=== PATIENT | male | born 1985 | race Two or more races ===

== ENCOUNTER 2019-10-02 15:58 | Inpatient (IN) ==
--- NOTE | 2019-10-02 16:43 | XRay Report ---
RIGHT FOOT 3 VIEWS CLINICAL HISTORY: Right foot injury. FINDINGS: 3 views of the right foot are obtained. No prior studies are available for comparison at th e time of dictation. The skeletal structures are well mineralized. There is a distracted fracture thr ough the base of the first metatarsal, with superior dislocation of the first metatarsal at the first tarsometatarsal articulation. There is also mild lateral subluxation of the base of the first metata rsal. There may also be fracture at the base of the second metatarsal which is also superiorly sublux ed. There is lateral displacement of the second through fifth metatarsals indicating Lisfranc injury. Overlying soft tissue edema is noted. IMPRESSION: 1. Fracture/dislocation at the first tarsometatarsal articulation as above. 2. There may also be fracture of the base of the second metatarsal which is also superiorly subluxed. 3. There is lateral displacement of the second through fifth metatarsals indicating Lisfranc type inj ury. Electronically signed by: Juan Lino M.D. 10/02/2019 4:41 PM
[2019-10-02] MEDS ORDERED: ONDANSETRON INJ 2 MG/ML 2 ML VIAL IV STA (16:50)
[2019-10-02] MEDS ORDERED: MoRPHine SULFATE 10 MG/ML CARP/VIAL IV STA (16:50)
[2019-10-02 16:59] LABS: Basophils # (auto) 0.02 K/uL (0-0.2); Basophils % (auto) 0.2 %; Eosinophils # (auto) 0.08 K/uL (0-0.5); Eosinophils % (auto) 0.7 %; Hematocrit (blood only) 44.8 % (42-52); Hemoglobin 15.2 g/dL (14.0-18.0); Immature Granulocytes # (auto) 0.02 K/uL (0.00-0.02); Immature Granulocytes % (auto) 0.2 %; Lymphocytes % (auto) 14.6 %; Mean Corpuscular Hemoglobin 30.4 pg (25-34); Mean Corpuscular Hgb Conc 33.9 g/dL (32-36); Mean Corpuscular Volume 89.6 fL (80-100); Mean Platelet Volume 10.4 fL (7.4-10.4); Monocytes # (auto) 0.72 K/uL (0.11-0.59); Monocytes % (auto) 6.6 %; Neutrophils # (auto) 8.52 K/uL (1.4-6.5); Neutrophils % (auto) 77.7 %; Platelet Count 190 K/uL (130-400); RDW Coefficient of Variation 13.2 % (11.5-14.5); RDW Standard Deviation 43.1 fL (36.4-46.3); White Blood Count 10.96 K/uL (4.8-10.8)
[2019-10-02 17:15] LABS: BUN Creatinine Ratio 18.5 (10-20); Blood Urea Nitrogen 15 mg/dl (7-18); Calcium 9.4 mg/dl (8.5-10.1); Carbon Dioxide 29 mmol/L (21-32); Chloride 108 mmol/L (98-107); Est GFR (African American) 133.7; Est GFR (Non-African American) 115.4; Glucose 102 mg/dl (70-99); Potassium 3.9 mmol/L (3.5-5.1); Sodium 140 mmol/L (136-145)
--- NOTE | 2019-10-02 18:28 | CT Scan Report ---
CT SCAN OF THE RIGHT FOOT WITHOUT IV CONTRAST CLINICAL HISTORY: Right foot fractures. COMPARISON STUDY: Radiographs of the right foot dated 10/02/2019. TECHNIQUE: CT scan of the right foot is performed from the ankle to the base of the foot. Images are reviewed in the axial, sagittal, and coronal planes. IV contrast was not administered for this examin ation. 3-D reformats are created and assessed. A dose lowering technique was utilized adhering to the principles of ALARA. CT DOSE: 160.91 mGy.cm FINDINGS: The skeletal structures are well mineralized. There is no fracture seen at the ankle joint. The ankle mortise is intact. There is a complex fracture/dislocation again seen in the midfoot. Ther e is a comminuted fracture through the base of the first metatarsal with large distracted fragments a nd dislocation at the first tarsometatarsal joint. There is superior subluxation of the first metatar justine with apex lateral angulation. There are also comminuted fracture through the base of the second a nd third metatarsals with intra-articular extension and numerous distracted fragments. There is super ior subluxation of the second metatarsal, as well as lateral displacement of the second through fifth metatarsals. This indicates a Lisfranc type fracture. There are tiny avulsion fractures identified a t the base of the fourth metatarsal, the dorsal surface at the base of the fifth metatarsal, and at t he base of the lateral cuneiform. There is soft tissue edema and hemorrhage identified around the fra cture sites. No subcutaneous gas is seen. The Achilles tendon is intact as visualized. IMPRESSION: Complex fracture/dislocation of the midfoot as detailed above. ACT 112: Negative or not required by law. Dictated: 10/02/2019 5:47 PM Transcribed: 10/02/2019 6:16 PM Ethel [id number] SALTY_Ana Maria Electronically signed by: Juan Lino M.D. 10/02/2019 6:27 PM
[2019-10-02] MEDS ORDERED: ONDANSETRON INJ 2 MG/ML 2 ML VIAL IV PRN (18:47)
[2019-10-02] MEDS ORDERED: SODIUM CHLORIDE 0.9% 1000ML 1,000 ML IV SCH (18:47)
[2019-10-02] MEDS: OXYCODONE/ACETAMINOPHEN 5mg/325mg TAB PO PRN ×2 (19:24→23:14)
[2019-10-02] MEDS ORDERED: Nursing to Pharmacy Communication ONE (20:07)
--- NOTE | 2019-10-02 20:17 | Emergency Department Note ---
History of Present Illness General Chief complaint: Foot Injury/Pain Stated complaint: POSSIBLY BROKEN FOOT,FELL OFF LADDER Time Seen by Provider: 10/02/19 16:09 Source: patient Mode of arrival: ambulatory Limitations: language barrier (Teacher Education Director used) History of Present Illness Maximum Pain Intensity: 7 This patient is a 34-year-old male who presents to the emergency department for evaluation of a right foot injury. History obtained with the aid of the interpreting service. The patient states that he was at work and was on a ladder when the ladder fell and he landed onto his right foot. He reports pain in the foot rated a 7/10. He has not been able to walk on the foot. He has not taken anything for pain. He denies numbness or weakness. He denies any other injuries and states he did not strike his head. Home Medications Home Medications Medication Instructions Recorded Confirmed Type No Known Home Medications 10/02/19 10/02/19 History Allergies Allergy/AdvReac Type Severity Reaction Status Date / Time No Known Allergies Allergy Verified 10/02/19 17:09 Past Med/Surg History Medical History No significant past medical history Social History Preferred Language: Lithuanian Communication Ability: Effective Communication Tools: IPad Teacher Education Director Required: Yes Beliefs That Will Affect Care: None Current Living Situation: Spouse Other Information That Helps Us Care for You: No Feels Safe at Home: Yes Safety Concerns: Feels Safe At This Time Smoking Status: Never smoker Do You Dip or Chew Tobacco: No ; Second Hand Exposure: No ; Tobacco Cessation Education Requested by Patient: No Hx Alcohol Use: No Hx Substance Use: No Review of Systems A total of 10 systems reviewed and were otherwise negative Physical Exam Vital Signs Vital Signs - 24 hr 10/02/19 16:02 Temperature 37.4 C Temperature Source Oral Pulse Rate 88 Respiratory Rate 18 Respiratory Effort / Characteristics Non-Labored Respiratory Depth Normal Blood Pressure 160/92 H Blood Pressure Mean 114 Blood Pressure Position Sitting Pulse Oximetry 100 Oxygen Delivery Method Room Air Sepsis Recent Fever Within 48 Hours No Sepsis New/Unexplained Change in Mental Status No Sepsis Action Taken by Nursing No Action Required VITALS: Vitals are noted on the nurse's note and reviewed by myself. Vital signs stable. GENERAL: This is a 34-year-old male, in no acute distress but appears to be in pain, well-developed well-nourished. SKIN: No laceration or abrasion. EARS: External auditory canals clear, tympanic membranes pearly curry without erythema or effusion bilaterally. EYES: Pupils equal round and reactive to light and accommodation. Extraocular movements intact. MOUTH: Mucous membranes moist. NECK: Supple without nuchal rigidity. No lymphadenopathy. HEART: Regular rate and rhythm without murmurs gallops or rubs. LUNGS: Clear to auscultation bilaterally without wheezes, rales or rhonchi. ABDOMEN: Soft, nontender. MUSCULOSKELETAL: Obvious deformity of the dorsum of the right midfoot with tenderness to palpation over the midfoot. Patient able to move all toes. Full range of motion of the ankle. No tenderness of the ankle or proximal tibia/fibula. Capillary refill within 2 seconds. NEURO: Patient was alert and oriented to person place and time. Sensation intact to the toes of the right foot. Dorsalis pedis pulse 2+. Course Consultations Consultation #1: Dr. Orellana - orthopedics Administered Medications Sodium Chloride (Nss 1000ml) 1,000 mls @ 70 mls/hr IV .[id number] ESE Stop: 10/02/19 23:59 Last Admin: 10/02/19 19:18 Dose: 70 mls/hr Documented by: [id number] Oxycodone/Acetaminophen (Percocet 5mg/325mg) 1 - 2 tab PO Q4H PRN PRN Reason: Pain Stop: 10/16/19 18:46 Last Admin: 10/02/19 19:24 Dose: 2 tab Documented by: [id number] Discontinued Medications Morphine Sulfate (Morphine Sulfate) 6 mg IV NOW STA Stop: 10/02/19 16:51 Last Admin: 10/02/19 16:59 Dose: 6 mg Documented by: [id number] Ondansetron HCl (Zofran) 4 mg IV NOW STA Stop: 10/02/19 16:51 Last Admin: 10/02/19 16:59 Dose: 4 mg Documented by: [id number] Medical Decision Making Differential Diagnosis Differential diagnosis includes fracture, contusion, dislocation, among others. Home Medications Current Medication List: was personally reviewed by me Laboratory Data Attestation: I reviewed the patient's lab results. Result diagrams: 10/02/19 16:50 10/02/19 16:50 Lab Results 10/02/19 10/02/19 Range/Units 16:50 16:50 WBC 10.96 H (4.8-10.8) K/uL RBC 5.00 (4.7-6.1) M/uL Hgb 15.2 (14.0-18.0) g/dL Hct 44.8 (42-52) % MCV 89.6 (80-100) fL MCH 30.4 (25-34) pg MCHC 33.9 (32-36) g/dL RDW Std Deviation 43.1 (36.4-46.3) fL RDW Coeff of Win 13.2 (11.5-14.5) % Plt Count 190 (130-400) K/uL MPV 10.4 (7.4-10.4) fL Immature Gran % (Auto) 0.2 % Neut % (Auto) 77.7 % Lymph % (Auto) 14.6 % [place] % (Auto) 6.6 % Eos % (Auto) 0.7 % Baso % (Auto) 0.2 % Immature Gran # (Auto) 0.02 (0.00-0.02) K/uL Neut # (Auto) 8.52 H (1.4-6.5) K/uL Lymph # (Auto) 1.60 (1.2-3.4) K/uL [place] # (Auto) 0.72 H (0.11-0.59) K/uL Eos # (Auto) 0.08 (0-0.5) K/uL Baso # (Auto) 0.02 (0-0.2) K/uL Sodium 140 (136-145) mmol/L Potassium 3.9 (3.5-5.1) mmol/L Chloride 108 H (98-107) mmol/L Carbon Dioxide 29 (21-32) mmol/L Anion Gap 3.0 (3-11) BUN 15 (7-18) mg/dl Creatinine 0.82 (0.6-1.4) mg/dl Est Cr Clr Drug Dosing Not Reportable Est GFR ( Amer) 133.7 Est GFR (Non-Af Amer) 115.4 BUN/Creatinine Ratio 18.5 (10-20) Glucose 102 H (70-99) mg/dl Calcium 9.4 (8.5-10.1) mg/dl Imaging Data Attestation: I personally reviewed and interpreted this imaging study as follows: Radiologist's Impression: RIGHT FOOT 3 VIEWS CLINICAL HISTORY: Right foot injury. FINDINGS: 3 views of the right foot are obtained. No prior studies are available for comparison at the time of dictation. The skeletal structures are well mineralized. There is a distracted fracture through the base of the first metatarsal, with superior dislocation of the first metatarsal at the first tarsometatarsal articulation. There is also mild lateral subluxation of the base of the first metatarsal. There may also be fracture at the base of the second metatarsal which is also superiorly subluxed. There is lateral displacement of the second through fifth metatarsals indicating Lisfranc injury. Overlying soft tissue edema is noted. IMPRESSION: 1. Fracture/dislocation at the first tarsometatarsal articulation as above. 2. There may also be fracture of the base of the second metatarsal which is also superiorly subluxed. 3. There is lateral displacement of the second through fifth metatarsals indic ating Lisfranc type injury. CT SCAN OF THE RIGHT FOOT WITHOUT IV CONTRAST CLINICAL HISTORY: Right foot fractures. COMPARISON STUDY: Radiographs of the right foot dated 10/02/2019. TECHNIQUE: CT scan of the right foot is performed from the ankle to the base of the foot. Images are reviewed in the axial, sagittal, and coronal planes. IV contrast was not administered for this examination. 3-D reformats are created and assessed. A dose lowering technique was utilized adhering to the principles of ALARA. CT DOSE: 160.91 mGy.cm FINDINGS: The skeletal structures are well mineralized. There is no fracture seen at the ankle joint. The ankle mortise is intact. There is a complex fracture/dislocation again seen in the midfoot. There is a comminuted fracture through the base of the first metatarsal with large distracted fragments and dislocation at the first tarsometatarsal joint. There is superior subluxation of the first metatarsal with apex lateral angulation. There are also comminuted fracture through the base of the second and third metatarsals with intra- cular extension and numerous distracted fragments. There is superior subluxation of the second metatarsal, as well as lateral displacement of the second through fifth metatarsals. This indicates a Lisfranc type fracture. There are tiny avulsion fractures identified at the base of the fourth metatarsal, the dorsal surface at the base of the fifth metatarsal, and at the base of the lateral cuneiform. There is soft tissue edema and hemorrhage identified around the fracture sites. No subcutaneous gas is seen. The Achilles tendon is intact as visualized. IMPRESSION: Complex fracture/dislocation of the midfoot as detailed above. Blood Pressure Blood Pressure Findings: Normal blood pressure MDM Narrative This patient is a 34-year-old male who presents to the emergency department for evaluation of an injury to his right foot. X-ray was obtained and shows fracture dislocation of the right first metatarsal, possible fracture of the second metatarsal with superior subluxation, and lateral subluxation of the lateral metatarsals consistent with Lisfranc injury. The case was discussed with the on-call orthopedist, Dr. Orellana, who will admit the patient for operative management in the morning. Patient received 6 mg IV morphine for pain. A CT was obtained at the request of Dr. Orellana and the patient was placed in a posterior and stirrup splint. The foot was elevated and ice applied. The patient was agreeable with the plan of care. Impression & Plan Lisfranc dislocation, Fracture dislocation of foot, Closed fracture of first metatarsal bone Discharge Plan Visit Data *Final* Discharge Date/Time: 10/02/19 18:13 Chief Complaint: Foot Injury/Pain Stated Complaint: POSSIBLY BROKEN FOOT,FELL OFF LADDER ED Provider: Juan Christopher ED Midlevel Provider: Radha Leonardo Discharge Problem: Lisfranc dislocation, Fracture dislocation of foot, Closed fracture of first metatarsal bone Patient Disposition: Admitted As Inpatient Discharge Instructions Interventions: ED Discharge Assessment Last Done: 10/02/19 18:13 Discharge Problem: Lisfranc dislocation Qualifiers: Encounter type: initial encounter Laterality: right Qualified Code(s): S93.324A - Dislocation of tarsometatarsal joint of right foot, initial encounter Fracture dislocation of foot Qualifiers: Encounter type: initial encounter Fracture type: closed Laterality: right Qualified Code(s): S92.901A - Unspecified fracture of right foot, initial encounter for closed fracture Closed fracture of first metatarsal bone Qualifiers: Encounter type: initial encounter Fracture alignment: displaced Laterality: right Qualified Code(s): S92.311A - Displaced fracture of first metatarsal bone, right foot, initial encounter for closed fracture
[2019-10-02] MEDS: HYDROmorphone INJ 0.5 MG/0.5 ML SYR IV PRN (22:02)
[2019-10-02] MEDS: SODIUM CHLORIDE 0.9% 1000ML 1,000 ML IV SCH (23:26)
[2019-10-03] MEDS: OXYCODONE/ACETAMINOPHEN 5mg/325mg TAB PO PRN ×2 (02:59→07:14)
[2019-10-03] MEDS: SODIUM CHLORIDE 0.9% 1000ML 1,000 ML IV SCH ×3 (03:38→22:23)
[2019-10-03] MEDS: HYDROmorphone INJ 0.5 MG/0.5 ML SYR IV PRN (03:38)
[2019-10-03] MEDS ORDERED: PROPOFOL IV EMULSION 10 MG/ML 20 ML VIAL IV ONE ×2 (06:58→11:21)
[2019-10-03] MEDS ORDERED: ONDANSETRON INJ 2 MG/ML 2 ML VIAL ONE ×2 (06:58→11:21)
[2019-10-03] MEDS ORDERED: DEXAMETHASONE SOD INJ 4 MG/ML VIAL ONE (06:58)
[2019-10-03] MEDS ORDERED: LIDOCAINE HCL 2% 2 ML VIAL/AMP(20MG/ML) INFIL ONE (06:58)
[2019-10-03] MEDS ORDERED: MIDAZOLAM HCL 1 MG/ML 2ML VIAL ONE (06:59)
[2019-10-03] MEDS ORDERED: fentaNYL citrate 100 MCG/2 ML VIAL ONE ×2 (06:59→10:44)
--- NOTE | 2019-10-03 07:12 | History & Physical Report ---
Date of Service October 03, 2019 Assessment & Plan (1) Lisfranc dislocation: Patient has a Lisfranc fracture/dislocation. Treatment options discussed and surgical fixation was recommended. Risks, benefits, and alternatives to surgery were discussed with the patient and they would like to proceed. Will plan on ORIF right foot this morning with Dr. Orellana. He will be in to see the patient to further discuss procedure and obtain signed informed consent. Again, patient does have a language barrier and will need ipad concrete stone finisher available. All questions answered. Encounter type: initial encounter Laterality: right Qualified Code(s): S93.324A - Dislocation of tarsometatarsal joint of right foot, initial encounter History of Present Illness Chief Complaint: Left foot pain Primary Care Provider: NO PCP 34 year old arabic speaking male with no significant PMHx presented to ED with complaint of right foot injury. Patient was at work and slipped off of a ladder and fell approximately 8 feet. Immediate onset of left foot pain. X-rays and CT scan at [facility] demonstrated complex fracture/dislocation of the midfoot. Surgical fixation was recommended. Denies any other injuries. Patient denies headaches, sweats, fevers, chills, double vision, blurred vision, cough, sore throat, dysphagia, chest pain, sob, wheezing, n/v/d/c, numbness, tingling,urinary symptoms. ROS positive for right pain and stiffness. History limited and o btained through concrete stone finisher ipad Allergies Allergy/AdvReac Type Severity Reaction Status Date / Time No Known Allergies Allergy Verified 10/02/19 17:09 Home Medications Home Medications Medication Instructions Recorded Confirmed Type No Known Home Medications 10/02/19 10/02/19 History Past Med/Surg History Medical History No significant past medical history Social History Preferred Language: Irish Communication Ability: Effective Communication Tools: IPad, Facial Expression and Physical Gestures Communications Coordinator Required: Yes Beliefs That Will Affect Care: None Current Living Situation: Spouse Other Information That Helps Us Care for You: No Feels Safe at Home: Yes Safety Concerns: Feels Safe At This Time Smoking Status: Never smoker Do You Dip or Chew Tobacco: No ; Second Hand Exposure: No ; Tobacco Cessation Education Requested by Patient: No Hx Alcohol Use: No Hx Substance Use: No Review of Systems All systems reviewed & are unremarkable except as noted in HPI & below Physical Exam Constitutional: well developed and well nourished; no acute distress ENMT: external ear and nose normal, oropharynx normal Neck: normal visual inspection Respiratory: normal respiratory effort; no respiratory distress Cardiovascular: Rate/Rhythm: regular rate and regular rhythm Musculoskeletal: Right foot-splint c/d/i. Toes are mobile and cap refill <3s. No pain with palpation and gentle ROM of knee or hip. Distally sensation is intact. No calf tenderness. Skin: no rashes, warm and dry Neurologic: normal touch/pain/proprioception and moves all extremities Psychiatric: A+Ox3, euthymic affect Lymphatic: no lymphadenopathy Results & Data Vital Signs (Past 12 Hours) Vital Signs Temp Pulse Resp BP Pulse Ox 10/02/19 23:42 36.9 C 59 L 16 108/67 94 Laboratory Results Lab Results 10/02/19 10/02/19 Range/Units 16:50 16:50 WBC 10.96 H (4.8-10.8) K/uL RBC 5.00 (4.7-6.1) M/uL Hgb 15.2 (14.0-18.0) g/dL Hct 44.8 (42-52) % MCV 89.6 (80-100) fL MCH 30.4 (25-34) pg MCHC 33.9 (32-36) g/dL RDW Std Deviation 43.1 (36.4-46.3) fL RDW Coeff of Win 13.2 (11.5-14.5) % Plt Count 190 (130-400) K/uL MPV 10.4 (7.4-10.4) fL Immature Gran % (Auto) 0.2 % Neut % (Auto) 77.7 % Lymph % (Auto) 14.6 % [place] % (Auto) 6.6 % Eos % (Auto) 0.7 % Baso % (Auto) 0.2 % Immature Gran # (Auto) 0.02 (0.00-0.02) K/uL Neut # (Auto) 8.52 H (1.4-6.5) K/uL Lymph # (Auto) 1.60 (1.2-3.4) K/uL [place] # (Auto) 0.72 H (0.11-0.59) K/uL Eos # (Auto) 0.08 (0-0.5) K/uL Baso # (Auto) 0.02 (0-0.2) K/uL Sodium 140 (136-145) mmol/L Potassium 3.9 (3.5-5.1) mmol/L Chloride 108 H (98-107) mmol/L Carbon Dioxide 29 (21-32) mmol/L Anion Gap 3.0 (3-11) BUN 15 (7-18) mg/dl Creatinine 0.82 (0.6-1.4) mg/dl Est Cr Clr Drug Dosing Not Reportable Est GFR ( Amer) 133.7 Est GFR (Non-Af Amer) 115.4 BUN/Creatinine Ratio 18.5 (10-20) Glucose 102 H (70-99) mg/dl Calcium 9.4 (8.5-10.1) mg/dl Diagnostic Findings RIGHT FOOT 3 VIEWS CLINICAL HISTORY: Right foot injury. FINDINGS: 3 views of the right foot are obtained. No prior studies are available for comparison at the time of dictation. The skeletal structures are well mineralized. There is a distracted fracture through the base of the first metatarsal, with superior dislocation of the first metatarsal at the first tarsometatarsal articulation. There is also mild lateral subluxation of the base of the first metatarsal. There may also be fracture at the base of the second metatarsal which is also superiorly subluxed. There is lateral displacement of the second through fifth metatarsals indicating Lisfranc injury. Overlying soft tissue edema is noted. IMPRESSION: 1. Fracture/dislocation at the first tarsometatarsal articulation as above. 2. There may also be fracture of the base of the second metatarsal which is also superiorly subluxed. 3. There is lateral displacement of the second through fifth metatarsals indicating Lisfranc type injury. CT SCAN OF THE RIGHT FOOT WITHOUT IV CONTRAST CLINICAL HISTORY: Right foot fractures. COMPARISON STUDY: Radiographs of the right foot dated 10/02/2019. TECHNIQUE: CT scan of the right foot is performed from the ankle to the base of the foot. Images are reviewed in the axial, sagittal, and coronal planes. IV contrast was not administered for this examination. 3-D reformats are created and assessed. A dose lowering technique was utilized adhering to the principles of ALARA. CT DOSE: 160.91 mGy.cm FINDINGS: The skeletal structures are well mineralized. There is no fracture seen at the ankle joint. The ankle mortise is intact. There is a complex fracture/dislocation again seen in the midfoot. There is a comminuted fracture through the base of the first metatarsal with large distracted fragments and dislocation at the first tarsometatarsal joint. There is superior subluxation of the first metatarsal with apex lateral angulation. There are also comminuted fracture through the base of the second and third metatarsals with intra- articular extension and numerous distracted fragments. There is superior subluxation of the second metatarsal, as well as lateral displacement of the second through fifth metatarsals. This indicates a Lisfranc type fracture. There are tiny avulsion fractures identified at the base of the fourth metatarsal, the dorsal surface at the base of the fifth metatarsal, and at the base of the lateral cuneiform. There is soft tissue edema and hemorrhage identified around the fracture sites. No subcutaneous gas is seen. The Achilles tendon is intact as visualized. IMPRESSION: Complex fracture/dislocation of the midfoot as detailed above. Code Status & VTE Plan VTE Prophylaxis Plan VTE Prophylaxis will be ordered: Yes
[2019-10-03] MEDS ORDERED: ROPIVACAINE 0.5% 5 MG/ML 30 ML VIAL ONE (08:09)
--- NOTE | 2019-10-03 08:22 | Anesthesiology Consultation ---
Date of Service October 03, 2019 Assessment & Plan (1) Encounter for pre-operative examination: History Surgery Operation Date: 10/03/19 08:00 Proposed Procedures p Open Reduction Internal Fixation Right Distal Dislocated Foot Fracture(Right) - Bernabe Orellana DO Height/Weight Height: 5 ft 8 in Weight: 89.1 kg Allergies Allergy/AdvReac Type Severity Reaction Status Date / Time No Known Allergies Allergy Verified 10/02/19 17:09 Medications Home Medications Medication Instructions Recorded Confirmed Last Taken No Known Home Medications 10/02/19 10/02/19 Unknown Active Medications Generic Name Dose Route Start Last Admin Trade Name Freq PRN Reason Stop Dose Admin Hydromorphone HCl 0.2 mg 10/02/19 20:11 10/03/19 03:38 Dilaudid IV 10/16/19 20:10 0.2 mg Q4H PRN Administration Pain Sodium Chloride 1,000 mls @ 125 mls/hr 10/02/19 23:59 10/03/19 07:32 Nss 1000ml IV 11/01/19 23:58 0 mls/hr .Q8H ESE Infusion Oxycodone/Acetaminophen 1 - 2 tab 10/02/19 18:47 10/03/19 07:14 Percocet 5mg/325mg PO 10/16/19 18:46 2 tab Q4H PRN Administration Pain NPO Date Last Intake of Fluids: 10/02/19 Time Last Intake of Fluids: 17:00 Last Intake of Fluids Comment: sips with meds at 0715 Date Last Intake of Solids: 10/02/19 Time Last Intake of Solids: 17:00 Past Medical History Medical History No significant past medical history Social History Smoking Status: Never smoker Do You Dip or Chew Tobacco: No Hx Alcohol Use: No Hx Substance Use: No substance use type: does not use Physical Exam Vital Signs Last Vital Signs Temp 36.7 C 10/03/19 07:29 Pulse 62 10/03/19 07:29 Resp 16 10/03/19 07:29 BP 120/79 10/03/19 07:29 Pulse Ox 96 10/03/19 07:29 Testing Laboratory Results 10/02/19 16:50 10/02/19 16:50
[2019-10-03] MEDS ORDERED: ATROPINE SULFATE 0.1 MG/ML 10ML SYR IV PRN (09:13)
[2019-10-03] MEDS ORDERED: ONDANSETRON INJ 2 MG/ML 2 ML VIAL IV PRN ×2 (09:13→12:32)
[2019-10-03] MEDS ORDERED: HYDROmorphone INJ 1 MG/ML SYRINGE IV PRN (09:13)
[2019-10-03] MEDS ORDERED: ePHEDrine sulfate 50 MG/ML AMP IV PRN (09:13)
[2019-10-03] MEDS ORDERED: fentaNYL citrate 100 MCG/2 ML VIAL IV PRN (09:13)
[2019-10-03] MEDS ORDERED: CEFAZOLIN 2000MG 2,000 MG/15 ML SYR IV ONE (09:18)
--- NOTE | 2019-10-03 11:28 | History & Physical Bridge Note ---
Date of Service October 03, 2019 History & Physical Bridge Note I have examined the patient, reviewed the History & Physical and in the interval since the performance of the History & Physical I have noted the following changes of clinical significance: no changes noted
--- NOTE | 2019-10-03 11:31 | Fluoroscopy Report ---
FL foot RT 2V HISTORY: 34 years-old Male ORIF multiple acute right-sided foot fractures COMPARISON: Right foot radiographs and CT 10/02/2019 TECHNIQUE: 2 spot fluoroscopic images of the right foot were obtained utilizing 190.8 seconds fluoros copy time. FINDINGS: K wires traversing the first, second and third tarsometatarsal joints. A cannulated screw traverses t he Lisfranc articulation. A second cannulated screw is noted in the midfoot traversing the first, sec ond and third cuneiforms. A third screw is noted within the base of the first metatarsal. There is im proved alignment. Expected postsurgical soft tissue swelling and deep tissue air. Dorsal spurring of the talus. IMPRESSION: Fluoroscopic assistance as above. Please see operative report for further details. ACT 112: Negative or not required by law. The above report was generated using voice recognition software. It may contain grammatical, syntax o r spelling errors. Electronically signed by: Sergio Carbajal M.D. 10/03/2019 11:29 AM
--- NOTE | 2019-10-03 11:34 | Post Operative Brief Note ---
Immediate Post Op Note v1 Date of Surgery October 03, 2019 Pre & Post Diagnosis Operation Date: 10/03/19 08:00 Pre-Op Diagnosis: RIGHT FOOT CLOSED FRACTURE/DISLOCATION Lisfranc joint, closed dislocations of the first, second and third tarsometatarsal joints, fractures at the base of the first, second and third metatarsals Post-Op Diagnosis: RIGHT FOOT CLOSED FRACTURE/DISLOCATION Lisfranc joint, closed dislocations of the first, second and third tarsometatarsal joints, fractures at the base of the first, second and third metatarsals I identified the patient and participated in the time-out.: Yes Procedure Operation Date: 10/03/19 08:00 Actual Procedures p Open reduction internal fixation first, second, and third tarsal metatarsal joint dislocations, Open reduction internal fixation of Lisfranc fracture/dislocation, open reduction internal fixation of first metatarsal base fracture, cast treatment of second and third metatarsal base fractures (Right) - Bernabe Orellana DO Surgeon Bernabe Orellana DO Farm Management Professor Yony Kate PA-C Estimated Blood Loss 2 Findings Consistent with Post-Op Diagnosis Specimens none Anesthesia Type General Regional Complications none Disposition Accompanied Patient To Recovery: No Disposition: Recovery Room
--- NOTE | 2019-10-03 12:02 | Anesthesiology Progress Note ---
Date of Service October 03, 2019 Anesthesia Post Procedure Vital Signs Vital Signs: Temp Pulse Pulse Pulse Resp BP BP 10/03/19 11:46 36.4 C L 77 16 10/03/19 07:29 36.7 C 62 16 10/02/19 23:42 36.9 C 59 L 16 10/02/19 19:00 37.1 C 61 16 119/71 10/02/19 17:59 78 17 122/65 10/02/19 16:02 37.4 C 88 18 160/92 H BP Pulse Ox 10/03/19 11:46 121/69 95 10/03/19 07:29 120/79 96 10/02/19 23:42 108/67 94 10/02/19 19:00 97 10/02/19 17:59 96 10/02/19 16:02 100 Pain Intensity Right Foot: Pain Intensity: 4 Transfer of Care Handoff Completed per policy Notes Mental Status: alert / awake / arousable and participated in evaluation Patient Amnestic to Procedure: Yes Nausea / Vomiting: adequately controlled Pain: adequately controlled Airway Patency, RR, SpO2: stable & adequate BP & HR: stable & adequate Hydration State: stable & adequate Anesthetic Complications: no major complications apparent and Pt Satisfied with anesthetic care
[2019-10-03] MEDS ORDERED: HYDROmorphone INJ 0.5 MG/0.5 ML SYR IV PRN (12:32)
[2019-10-03] MEDS ORDERED: bisacodyL 10 MG SUPP PR PRN (12:32)
[2019-10-03] MEDS ORDERED: MAGNESIUM HYDROXIDE SUSP 30 ML UDC PO PRN (12:32)
[2019-10-03] MEDS ORDERED: METOCLOPRAMIDE HCL INJ 5 MG/ML 2 ML VIAL IV PRN (12:32)
[2019-10-03] MEDS ORDERED: TAMSULOSIN HCL 0.4 MG CAP PO PRN (12:32)
[2019-10-03] MEDS ORDERED: NALOXONE HCL 0.4 MG/1 ML VIAL/CARP IV PRN (12:32)
[2019-10-03] MEDS ORDERED: OXYCODONE HCL IR 5 MG TAB (IMMEDIATE RELEASE) PO PRN (12:32)
--- NOTE | 2019-10-03 12:34 | Operative Report ---
DATE OF OPERATION: 10/03/2019 PREOPERATIVE DIAGNOSES: 1. Right closed displaced Lisfranc fracture dislocation. 2. Closed dislocations of the first, second, and third tarsometatarsal joints. 3. Fractures of the bases of the first, second and third metatarsals. POSTOPERATIVE DIAGNOSES: 1. Right closed displaced Lisfranc fracture dislocation. 2. Closed dislocations of the first, second, and third tarsometatarsal joints. 3. Fractures of the bases of the first, second and third metatarsals. PROCEDURE: 1. Open reduction and internal fixation of right foot closed displaced Lisfranc fracture dislocation. 2. Open reduction and internal fixation of first, second, and third tarsometatarsal joint dislocations. 3. Open reduction and internal fixation of first metatarsal base fracture. 4. Cast treatment for second and third metatarsal base fractures. SURGEON: Bernabe Orellana DO. PURCHASING MANAGER/SALES: Yony Kate PA-C who was present for patient positioning, sterile prep and drape, management of retractors and instruments. He was present through the critical portions of the case including wound closure, application of sterile dressing and transport of the patient to recovery. ANESTHESIA: General regional. SPECIMENS: None. DRAINS: None. COMPLICATIONS: None. BLOOD LOSS: 2 mL. 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 He fell approximately 8 feet from the latter. Unfortunately, his right foot was lodged in the rungs of the ladder, caught his foot and hyperplantarflexed it within the rungs of the ladder and then folded his foot in half. He then fell to the ground from the ladder and was then unable to ambulate. He had an obvious deformity of his right foot, severe pain and swelling. Transported to [facility], evaluated, x-rayed and then admitted to the hospital for management of edema and scheduling for surgery for his acute fractures. All potential risks, benefits, complications, alternatives, rehab potential for incomplete relief of symptoms, need for further surgery, DVT, PE, , persistent pain, swelling, scarring, weakness, neurovascular injury, wound complications, hardware failure, nonunion, malunion, loss of function, persistent scarring, swelling and posttraumatic degenerative arthritis was discussed with the patient. I did use an shipping point inspector service for the patient who voiced complete understanding of all facets of the care rendered. Family members were also present and they also listened to the interpretation and discussion with the shipping point inspector and had all questions answered. DESCRIPTION OF PROCEDURE: The patient had a popliteal block in the preop holding area, then taken to the operative suite, placed supine on the operating room table. After review of consent and identification of proper operative site, the patient was anesthetized, LMA was placed. Tourniquet was placed high on the right thigh over cast padding. Right lower extremity was then sterilely prepped and draped in usual fashion, elevated and exsanguinated using an Esmarch bandage, tourniquet inflated to 350 mmHg. Next, a 15 blade scalpel was used to make an incision in the dorsal medial aspect of the first tarsometatarsal joint. This was then deepened with a 15 blade scalpel in the subcutaneous tissue and subcutaneous fat. Careful dissection was performed with tenotomy scissors through the fascia down to the level adjacent to the extensor tendon. Branch of the saphenous vein was identified, freed, retracted, and protected with Weitlaners. The joint capsule was noted to be distended. There is obvious dislocation of the first tarsometatarsal joint. This was incised with a 15 blade scalpel revealing the fracture and the dislocation. Noted to be some fragmentation at the base of the first metatarsal with clot. This was irrigated until clear. The fracture was then reduced and provisionally pinned in place with a 0.08 mm K-wire to pin the tarsometatarsal joint in place. Next, a 1.25 mm guidewire was placed through the plantar fragment of the first metatarsal to stabilize it under live fluoroscopic assistance. This achieved near anatomic reduction and fixation. Next, attention was then directed toward the base of the second metatarsal. Dorsal incision was made with a 15 blade scalpel on the lateral aspect of the second tarsometatarsal joint. The incision was deepened through the subcutaneous tissue. Meticulous hemostasis was achieved with electrocautery. Full thickness skin flaps were developed and the fascia was then incised with 15 blade scalpel. Careful dissection was performed through the subcutaneous tissue. The sensory cutaneous nerves were identified, freed, retracted, and protected. The dorsal extensors were also retracted and protected. Geetha rakes were applied to the incision for gentle skin retraction. Next, the joint capsule was identified and noted to be distended. There was an obvious dislocation of the second tarsometatarsal joint. This was then incised with a 15 blade scalpel. There was clot and obvious dislocations, irrigated with sterile normal saline until clear. A gentle traction distally was performed at the lesser toes and reduction of the dislocation was then performed. Next, a 15 blade was then used to incise the fascia revealing the third tarsometatarsal joint. The extensor tendons were retracted and open reduction was performed of the third tarsometatarsal joint. Irrigation was performed of the joint and the Griggs reduction forceps was placed from the base of second metatarsal to the first cuneiform and under a live fluoroscopic assistance, a 1.25 mm threaded guide pin was placed in the first cuneiform to the base of second metatarsal, stabilizing the Lisfranc's joint into anatomic position and alignment. Next, the 4.0 mm short thread screw, 34 mm in length was then placed from the first cuneiform to the second metatarsal base under live fluoroscopic assistance. A second 34 mm 4.0 cannulated screw was placed under live fluoroscopic assistance from the first cuneiform through the second cuneiform into the third cuneiform to stabilize the medial column. Once this was completed, a 20 mm 4.0 cannulated screw was then placed through the base of the first metatarsal, stabilizing the plantar fragment of the first metatarsal fracture. Next, the K wires were removed and the first, second and third tarsometatarsal joints were then pinned in place percutaneously with K wires placed from distal to proximal under live fluoroscopic assistance. Small relief cuts were made with 15 blade scalpel at the interface of the K-wire and the skin to prevent tissue necrosis. The pins were then bent dorsally and then cut and covered with Jurgan balls. Finally, all incisions were then copiously irrigated with sterile normal saline until clear and the dermis was closed using buried interrupted 3-0 Vicryl, skin was closed using 4-0 nylon. Decision was made to treat the plantar fractures of the second and third metatarsals using cast care. They were well reduced and pinned in place indirectly. Next, a sterile compressive dressing was applied. Final radiographs were obtained and then a bulky Christiano Navarro plaster splint was applied overwrapped with an Suhail wrap. The foot was held in neutral dorsiflexion. The tourniquet was released. The toes were pink and warm. The patient was awakened and taken to recovery in stable condition. I attest to the content of the Intraoperative Record and any orders documented therein. Any exception s are noted below.
[2019-10-03] MEDS: ACETAMINOPHEN 500 MG TAB PO SCH ×2 (13:33→21:06)
[2019-10-03] MEDS: CEFAZOLIN 2000MG 2,000 MG/15 ML SYR IV SCH (17:09)
[2019-10-03] MEDS ORDERED: SENNA 8.6 MG TAB PO SCH (21:00)
[2019-10-03] MEDS: DOCUSATE SODIUM 100 MG CAP PO SCH (21:06)
[2019-10-03] MEDS: ASPIRIN 81 MG ECTAB PO SCH (21:06)
[2019-10-04] MEDS: CEFAZOLIN 2000MG 2,000 MG/15 ML SYR IV SCH (01:46)
[2019-10-04] MEDS: ACETAMINOPHEN 500 MG TAB PO SCH (05:29)
[2019-10-04 06:16] LABS: Hematocrit (blood only) 41.4 % (42-52); Hemoglobin 13.8 g/dL (14.0-18.0); Mean Corpuscular Hemoglobin 30.1 pg (25-34); Mean Corpuscular Hgb Conc 33.3 g/dL (32-36); Mean Corpuscular Volume 90.4 fL (80-100); Mean Platelet Volume 10.9 fL (7.4-10.4); Platelet Count 192 K/uL (130-400); RDW Coefficient of Variation 13.2 % (11.5-14.5); RDW Standard Deviation 43.1 fL (36.4-46.3); Red Blood Count 4.58 M/uL (4.7-6.1); White Blood Count 10.41 K/uL (4.8-10.8)
[2019-10-04 06:48] LABS: BUN Creatinine Ratio 14.9 (10-20); Calcium 8.6 mg/dl (8.5-10.1); Creatinine Clr Calc Pharmacy 148.5 ml/min; Potassium 3.5 mmol/L (3.5-5.1)
--- NOTE | 2019-10-04 07:48 | Anesthesiology Progress Note ---
Date of Service October 04, 2019 Anesthesia Post Procedure Vital Signs Vital Signs: Temp Pulse Pulse Resp BP BP Pulse Ox 10/04/19 07:11 36.7 C 62 18 109/67 95 10/04/19 03:40 36.7 C 72 16 108/67 96 10/03/19 23:10 37 C 66 16 100/67 95 10/03/19 19:34 37.2 C 76 16 110/63 96 10/03/19 15:41 36.8 C 65 16 122/72 96 10/03/19 14:22 61 16 114/70 99 10/03/19 13:31 61 16 109/65 99 10/03/19 13:00 36.9 C 60 16 113/69 99 10/03/19 12:30 36.9 C 68 14 113/73 99 10/03/19 12:25 58 L 14 109/69 98 10/03/19 12:15 36.5 C 57 L 18 111/70 99 10/03/19 12:05 60 14 110/63 99 10/03/19 11:55 80 14 120/68 96 10/03/19 11:46 36.4 C L 77 16 121/69 95 Pain Intensity Right Foot: Pain Intensity: 4 Notes Mental Status: alert / awake / arousable Patient Amnestic to Procedure: Yes Nausea / Vomiting: adequately controlled Pain: adequately controlled Airway Patency, RR, SpO2: stable & adequate BP & HR: stable & adequate Hydration State: stable & adequate Anesthetic Complications: no major complications apparent and Pt Satisfied with anesthetic care
--- NOTE | 2019-10-04 08:09 | Orthopedic Progress Note ---
Date of Service October 04, 2019 Assessment & Plan (1) Lisfranc dislocation: POD #1 s/p 1. Open reduction and internal fixation of right foot closed displaced Lisfranc fracture dislocation. 2. Open reduction and internal fixation of first, second, and third tarsometatarsal joint dislocations. 3. Open reduction and internal fixation of first metatarsal base fracture. 4. Cast treatment for second and third metatarsal base fractures NWB RLE at all times. Splint to remain in place over the next 2 weeks. DVT prophylaxis--ASA 81 mg BID x 4 wks. D/C planning--home today. He states he is from [place]. 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 We will see him back in 2 weeks if he is unable to get in to see anyone. Subjective Doing well this morning. States the pain is controlled. He can feel his foot and ankle but having some trouble moving his toes. Has been NWB on the RLE. Physical Exam Constitutional: WD/WN, vitals as above Musculoskeletal: Right lower leg: Splint C/D/I. Toes are slightly mobile. Cap refill <2 seconds. Neurologic: normal touch/pain/proprioception Psychiatric: A+Ox3, euthymic affect Speech: normal rate/rhythm/volume of speech Results & Data ([facility]) Vital Signs (Past 12 Hours) Vital Signs Temp Pulse Pulse Resp BP BP Pulse Ox 10/04/19 07:46 36.7 C 61 62 18 109/67 108/67 95 10/04/19 07:11 36.7 C 62 18 109/67 95 10/04/19 03:40 36.7 C 72 16 108/67 96 10/03/19 23:10 37 C 66 16 100/67 95 (1) Lisfranc dislocation Encounter type: initial encounter Laterality: right Qualified Code(s): S93.324A - Dislocation of tarsometatarsal joint of right foot, initial encounter
[2019-10-04] MEDS: ASPIRIN 81 MG ECTAB PO SCH (08:31)
[2019-10-04] MEDS: DOCUSATE SODIUM 100 MG CAP PO SCH (08:32)
[2019-10-04] MEDS ORDERED: MULTIVITAMIN TAB PO SCH (09:00)
--- NOTE | 2019-10-04 18:12 | Discharge Summary ---
Date of Service October 04, 2019 Admission HPI Per Admitting Provider 34 year old serbian speaking male with no significant PMHx presented to ED with complaint of right foot injury. Patient was at work and slipped off of a ladder and fell approximately 8 feet. Immediate onset of left foot pain. X-rays and CT scan at [facility] demonstrated complex fracture/dislocation of the midfoot. Surgical fixation was recommended. Denies any other injuries. Patient denies headaches, sweats, fevers, chills, double vision, blurred vision, cough, sore throat, dysphagia, chest pain, sob, wheezing, n/v/d/c, numbness, tingling,urinary symptoms. ROS positive for right pain and stiffness. History limited and obtained through analyst market intelligence ipad Admission Exam Per Admitting Provider Constitutional: well developed and well nourished; no acute distress ENMT: external ear and nose normal, oropharynx normal Neck: normal visual inspection Respiratory: normal respiratory effort; no respiratory distress Cardiovascular: Rate/Rhythm: regular rate and regular rhythm Musculoskeletal: Right foot-splint c/d/i. Toes are mobile and cap refill <3s. No pain with palpation and gentle ROM of knee or hip. Distally sensation is intact. No calf tenderness. Skin: no rashes, warm and dry Neurologic: normal touch/pain/proprioception and moves all extremities Psychiatric: A+Ox3, euthymic affect Lymphatic: no lymphadenopathy Principal Diagnosis Right Lisfranc fracture/dislocation Discharge Exam Constitutional: WD/WN, vitals as above Musculoskeletal: Right lower leg: Splint C/D/I. Toes are slightly mobile. Cap refill <2 seconds. Neurologic: normal touch/pain/proprioception Psychiatric: A+Ox3, euthymic affect Speech: normal rate/rhythm/volume of speech Discharge Data Allergies Allergy/AdvReac Type Severity Reaction Status Date / Time No Known Allergies Allergy Verified 10/02/19 17:09 Consultations 10/02/19 16:59 Consult Orthopedic Surgery Stat 10/02/19 18:14 Consult Anesthesiology Routine 10/02/19 18:47 Consult Case Management - Discharge Planning Routine 10/03/19 12:32 Consult Case Management - Discharge Planning Routine Procedures Performed Operation Date: 10/03/19 08:00 Actual Procedures p Open reduction internal fixation first, second, and third tarsal metatarsal, Open reduction internal fixation of Lisfranc fracture, open reduction internal fixation of first metatarsal base fracture(Right) - Bernabe Costello DO Ordered Studies 10/02/19 17:14 CT foot RT wo con Stat 10/03/19 07:00 FL fluoroscopy <1hr Routine FL foot RT 2V Routine 10/03/19 08:20 US - OR guided needle placemen Routine Hospital Course (1) Lisfranc dislocation: Patient presented to the ED on Friday10/02/19 after sustaining a fall at work and was subsequently admitted for surgical repair of his right foot injury. He underwent surgery on 10/03/2019 without complication. He tolerated procedure well. On POD#1 patient was improving and pain was well controlled. He was instructed to be NWB on RLE at all times. He was placed on aspirin 81mg BID x 4 weeks for DVT prophylaxis. After exam on 10/03/2019 patient felt stable for discharge home. Instructed to follow up in the office in 2 weeks for reevaluation if unable to find orthopedist closer to home. Lab Results 10/02/19 10/02/19 10/04/19 Range/Units 16:50 16:50 04:42 WBC 10.96 H 10.41 (4.8-10.8) K/uL RBC 5.00 4.58 L (4.7-6.1) M/uL Hgb 15.2 13.8 L (14.0-18.0) g/dL Hct 44.8 41.4 L (42-52) % MCV 89.6 90.4 (80-100) fL MCH 30.4 30.1 (25-34) pg MCHC 33.9 33.3 (32-36) g/dL RDW Std Deviation 43.1 43.1 (36.4-46.3) fL RDW Coeff of Win 13.2 13.2 (11.5-14.5) % Plt Count 190 192 (130-400) K/uL MPV 10.4 10.9 H (7.4-10.4) fL Immature Gran % (Auto) 0.2 % Neut % (Auto) 77.7 % Lymph % (Auto) 14.6 % Wagoner % (Auto) 6.6 % Eos % (Auto) 0.7 % Baso % (Auto) 0.2 % Immature Gran # (Auto) 0.02 (0.00-0.02) K/uL Neut # (Auto) 8.52 H (1.4-6.5) K/uL Lymph # (Auto) 1.60 (1.2-3.4) K/uL Wagoner # (Auto) 0.72 H (0.11-0.59) K/uL Eos # (Auto) 0.08 (0-0.5) K/uL Baso # (Auto) 0.02 (0-0.2) K/uL Sodium 140 (136-145) mmol/L Potassium 3.9 (3.5-5.1) mmol/L Chloride 108 H (98-107) mmol/L Carbon Dioxide 29 (21-32) mmol/L Anion Gap 3.0 (3-11) BUN 15 (7-18) mg/dl Creatinine 0.82 (0.6-1.4) mg/dl Est Cr Clr Drug Dosing Not Reportable Est GFR ( Amer) 133.7 Est GFR (Non-Af Amer) 115.4 BUN/Creatinine Ratio 18.5 (10-20) Glucose 102 H (70-99) mg/dl Calcium 9.4 (8.5-10.1) mg/dl 10/04/19 Range/Units 04:42 WBC (4.8-10.8) K/uL RBC (4.7-6.1) M/uL Hgb (14.0-18.0) g/dL Hct (42-52) % MCV (80-100) fL MCH (25-34) pg MCHC (32-36) g/dL RDW Std Deviation (36.4-46.3) fL RDW Coeff of Win (11.5-14.5) % Plt Count (130-400) K/uL MPV (7.4-10.4) fL Immature Gran % (Auto) % Neut % (Auto) % Lymph % (Auto) % Wagoner % (Auto) % Eos % (Auto) % Baso % (Auto) % Immature Gran # (Auto) (0.00-0.02) K/uL Neut # (Auto) (1.4-6.5) K/uL Lymph # (Auto) (1.2-3.4) K/uL Wagoner # (Auto) (0.11-0.59) K/uL Eos # (Auto) (0-0.5) K/uL Baso # (Auto) (0-0.2) K/uL Sodium 139 (136-145) mmol/L Potassium 3.5 (3.5-5.1) mmol/L Chloride 106 (98-107) mmol/L Carbon Dioxide 27 (21-32) mmol/L Anion Gap 6.0 (3-11) BUN 11 (7-18) mg/dl Creatinine 0.76 (0.6-1.4) mg/dl Est Cr Clr Drug Dosing 148.5 Est GFR ( Amer) 138.0 Est GFR (Non-Af Amer) 119.0 BUN/Creatinine Ratio 14.9 (10-20) Glucose 110 H (70-99) mg/dl Calcium 8.6 (8.5-10.1) mg/dl Total Time Total Time Spent Total Time Spent (In Minutes): 20 Discharge Plan Discharge Items Patient Disposition: Home - Self-Care Reason For Visit: FOOT FRACTURE/DISLOCATION Discharge Diagnosis: right foot lisfranc fracture/dislocation Activity: Per Instructions section Weightbearing: Right non-weightbearing Non-emergency contact: Surgeon Call non-emergency contact if: your pain is not controlled, your pain is worsening and your temperature is above 101 Follow-up/Referrals: PCP,NO [Primary Care Provider] - Diet: Regular Addtl Attending Provider Instructions: ACTIVITY RECOMMENDATIONS: Limitations: No weight bearing to affected limb at all times. SPECIAL CARE INSTRUCTIONS: * You will take Aspirin 81 mg every 12 hours for blood clot prophylaxis. You may continue it this evening. * Some drainage onto the dressing is normal and is no cause for alarm. * Some swelling is natural especially after walking. * When resting, keep your foot elevated above the level of your heart. * Call [facility] [place] if you notice: -Increased drainage -Fever over 101 degrees F -Severe constant pain BANDAGE: * Leave bandage/cast in place unless otherwise directed. * Keep bandage/cast dry at all times. FOLLOW UP VISIT WITH DR. COSTELLO If appointment is not already scheduled: If you are following up near home, we recommend seeing an orthopedic surgeon, preferably an orthopedic foot and ankle specialist, in 2 weeks from surgery. If you are unable to see someone near home in that time, please call the number below to follow up with our office in 2 weeks. Please call [facility] [place] after you get home today to schedule a follow-up appointment for [address] Costello at . Pending Studies at Discharge: No Stand-Alone Forms: Care of Casts, My [facility], Opioid Pain Management, Smoking Cessation Medications and DC Order Prescriptions: New aspirin [Ecotrin Low Strength] 81 mg Tablet,Delayed Release (Dr/Ec) 81 mg PO BID Qty: 60 RF: 0 acetaminophen 500 mg Tablet 1,000 mg PO Q8 Qty: 100 RF: 0 oxycodone 5 mg Tablet 5 - 10 mg PO Q4H PRN (Reason: pain) Qty: 20 RF: 0 No Action No Known Home Medications RF: 0 Discharge Orders: Discharge Order (Routine); Ordered 10/04/19 Ordered By: Evgeny Bedoya/Other Patient Handouts: Surgery Prevent DVT After Admission Data Admit Date/Time: 10/02/19 17:46 Attending Provider: Bernabe Costello Admit Provider: Bernabe Costello Primary Care Provider: PCP,NO Other Providers: Bernabe Costello ; Laura Cisneros Other Interventions: Discharge Summary Assessment (RN) Last Done: 10/04/19 07:46 DC Date/Time DO NOT enter until pt leaves facility: 10/04/19 12:27
== END 2019-10-04 12:27 | disposition home or self-care (01) | DRG 505 ==
LOC: ED 15:58 → 3E 17:46